=== PATIENT | male | born 1975 | race Caucasian/White ===

== ENCOUNTER 2018-01-15 18:58 | Inpatient (IN) | payer OTHER ==
[~2018-01-15] VITALS: Ht 172.7 cm; Wt 79.4 kg
[2018-01-15 19:03] VITALS: Ht 172.7 cm; Wt 79.4 kg
[2018-01-15 21:11] LABS: PLATELET COUNT 203 x10^3mcL (130-400); RED CELL DISTRIBUTION WIDTH 13.4 % (11.5-14.5)
[2018-01-15 21:12] LABS: BASOPHIL % 0 % (0-2)
[2018-01-15 21:18] LABS: CARBON DIOXIDE 29.3 mmol/L (21-32); CHLORIDE SERUM 105 mmol/L (98-107); CREATININE SERUM 1.2 mg/dL (0.7-1.3); GFR1 > 60 mL/min; GLUCOSE SERUM 174 mg/dL (74-106); POTASSIUM SERUM 4.8 mmol/L (3.5-5.1); SODIUM SERUM 137 mmol/L (136-145)
[2018-01-15 21:22] LABS: ALBUMIN 4.1 g/dL (3.4-5.0); ALKALINE PHOSPHATASE 51 U/L (46-116); ALT/SGPT 308 U/L (16-63); AST/SGOT 130 U/L (15-37); BILIRUBIN TOTAL 0.6 mg/dL (0.20-1.00); TOTAL PROTEIN, SERUM 8.1 g/dL (6.4-8.2)
[2018-01-15] MEDS ORDERED: KEPPRA500 MG (21:46)
[2018-01-15 23:10] VITALS: BP 112/73
[2018-01-15 23:57] LABS: CHOLESTEROL/HDL RATIO 4.3
[2018-01-16 05:47] VITALS: BP 116/70
[2018-01-16 07:19] LABS: BASOPHIL % 0.1 % (0-2); PLATELET COUNT 200 x10^3mcL (130-400); RED CELL DISTRIBUTION WIDTH 12.9 % (11.5-14.5)
[2018-01-16 07:39] LABS: CALCIUM 8.9 mg/dL (8.5-10.1); CARBON DIOXIDE 30.2 mmol/L (21-32); CHLORIDE SERUM 102 mmol/L (98-107); CREATININE SERUM 1.1 mg/dL (0.7-1.3); GFR1 > 60 mL/min; GLUCOSE SERUM 122 mg/dL (74-106); POTASSIUM SERUM 4.4 mmol/L (3.5-5.1); SODIUM SERUM 140 mmol/L (136-145); T4(THYROXINE) 10.6 ug/dL (4.7-13.3)
[2018-01-16 09:04] VITALS: BP 107/57
[2018-01-16 09:16] LABS: CHOLESTEROL/HDL RATIO 3.9
[2018-01-16 10:13] LABS: ERYTHROCYTE SED RATE 3 mm/hr (0-15)
[2018-01-16 12:49] VITALS: BP 95/54
[2018-01-16 14:54] LABS: AMPHETAMINE QUAL UR NONE DETECTED (See below)
[2018-01-16 14:59] LABS: UA SPECIFIC GRAVITY 1.025 (1.005-1.035); microscopic required? YES; urine erythrocyte NEGATIVE (NEGATIVE)
[2018-01-16 17:32] VITALS: BP 99/59
[2018-01-16 20:29] VITALS: BP 98/61
[2018-01-17 03:07] LABS: BASOPHIL % 0.3 % (0-2); PLATELET COUNT 162 x10^3mcL (130-400); RED CELL DISTRIBUTION WIDTH 13.3 % (11.5-14.5)
[2018-01-17 03:22] LABS: ALBUMIN 3.5 g/dL (3.4-5.0); ALKALINE PHOSPHATASE 39 U/L (46-116); ALT/SGPT 210 U/L (16-63); AST/SGOT 72 U/L (15-37); BILIRUBIN TOTAL 0.8 mg/dL (0.20-1.00); CALCIUM 8.4 mg/dL (8.5-10.1); CARBON DIOXIDE 30.6 mmol/L (21-32); CHLORIDE SERUM 101 mmol/L (98-107); CREATININE SERUM 1.1 mg/dL (0.7-1.3); GFR1 > 60 mL/min; GLUCOSE SERUM 114 mg/dL (74-106); POTASSIUM SERUM 3.8 mmol/L (3.5-5.1); SODIUM SERUM 134 mmol/L (136-145); TOTAL PROTEIN, SERUM 7.3 g/dL (6.4-8.2)
[2018-01-17 04:24] LABS: RAPID PLASMA REAGIN Non Reactive (Non Reactive)
[2018-01-17 05:23] VITALS: BP 104/71
[2018-01-17 08:00] VITALS: BP 128/78
[2018-01-17 09:05] LABS: RHEUMATOID ARTHRITIS FACTOR <10.0 IU/mL (0.0-13.9)
[2018-01-17 12:31] VITALS: BP 126/73
[2018-01-17 17:02] VITALS: BP 123/83
[2018-01-17 17:43] VITALS: BP 123/83
== END 2018-01-17 22:58 | disposition other institution (70) | DRG 302 ==
LOC: ED 18:58 → DU 22:21
PROVIDERS: Emergency Medicine; Internal Medicine; Internal Medicine Cardiovascular Disease
PROC: 5A12012 Performance of Cardiac Output, Single, Manual (ICD-10-PCS; principal; 2018-01-15)
DX: I25.10 Atherosclerotic heart disease of native coronary artery without angina pectoris (principal); I46.9 Cardiac arrest, cause unspecified; G93.41 Metabolic encephalopathy; G40.909 Epilepsy, unspecified, not intractable, without status epilepticus; R73.9 Hyperglycemia, unspecified; D72.829 Elevated white blood cell count, unspecified; Z88.0 Allergy status to penicillin
CPT/HCPCS: 82962; 86431; A9500; J1644; J2270; J2550; J2765; J2785; Q0092